=== PATIENT | female | born 1950 | race Two or more races ===

== ENCOUNTER 2018-05-26 12:02 | Outpatient (CLI) | payer OTHER | END 2018-05-26 12:12 | disposition home or self-care (01) | LOC: SONOGRAMA 12:02 | DX: N60.11 Diffuse cystic mastopathy of right breast (principal); N60.12 Diffuse cystic mastopathy of left breast; N63.22 Unspecified lump in the left breast, upper inner quadrant ==

== ENCOUNTER → 2018-09-21 | Outpatient (CLI) | payer OTHER ==
[~2018-09-21] VITALS: Ht 154.9 cm; Wt 64.4 kg
== END | disposition home or self-care (01) ==
LOC: OFIC 805 14:00
DX: R68.2 Dry mouth, unspecified (principal); M35.00 Sjogren syndrome, unspecified

== ENCOUNTER 2018-10-19 09:33 | Outpatient (CLI) | payer OTHER ==
[~2018-10-19] VITALS: Ht 152.4 cm; Wt 63.5 kg
== END 2018-10-19 09:45 | disposition home or self-care (01) ==
LOC: OFIC 805 09:33
DX: R68.2 Dry mouth, unspecified (principal); R09.81 Nasal congestion; J30.89 Other allergic rhinitis

== ENCOUNTER 2024-09-25 14:36 | Inpatient (IN) | payer OTHER ==
[~2024-09-25] VITALS: Ht 154.9 cm; Wt 63.0 kg
[2024-09-25] MEDS ORDERED: LIPITOR40 MG PO (15:23)
[2024-09-25] MEDS ORDERED: ZOVIRAX200 MG PO (15:26)
[2024-09-25] MEDS ORDERED: ATORVASTATIN CA20 MG PO (15:27)
[2024-09-25] MEDS ORDERED: TENORMIN50 M1 (15:27)
[2024-09-25] MEDS ORDERED: AMITRIPTYLINE H25 MG PO (15:27)
[2024-09-25] MEDS ORDERED: CELEBREX200MG PO (15:28)
[2024-09-25] MEDS ORDERED: BETAMETHASONE D15 G2 (15:28)
[2024-09-25] MEDS ORDERED: FENOFIBRIC ACI105 MG (15:28)
[2024-09-25] MEDS ORDERED: HYDROCHLOROTH12.5 M2 PO (15:29)
[2024-09-25] MEDS ORDERED: LOSARTAN POTASS50 MG PO (15:29)
[2024-09-25] MEDS ORDERED: LEVO-T50 MCG (15:29)
[2024-09-25] MEDS ORDERED: MAXIMUM D3325 MCG PO (15:30)
[2024-09-25] MEDS ORDERED: PANTOPRAZOLE SO40 MG PO (15:30)
[2024-09-25] MEDS ORDERED: RISEDRONATE SOD35 M1 (15:30)
[2024-09-25] MEDS ORDERED: SERTRALINE HCL100 MG PO (15:31)
[2024-09-25] MEDS ORDERED: ZANAFLEX2 M1 (15:31)
--- NOTE | 2024-09-25 15:32 | NUR ---
SE RECIBE PACIENTE FEMENINA ALERTA Y ORIENTADA X3. REFIERE ACUDIR A ER POR SINTOMAS DE DOLOR DE RICHELLE Y DEBILIDAD EN LAS PIERNAS. INDICA QUE EL DOLOR DE RICEHLLE SE UBICA DE MANERA UNILATERAL, PUNZANTE DE MANERA INTERMITENTE
--- NOTE | 2024-09-25 17:03 | NUR ---
PACIENTE ALERTA Y ORIENTADA X 3. SE ORIENTA DE TRATAMIENTO TREVOR ORDEN MEDICA. REFIERE ENTENDER. SE MELISA MUESTRAS CON MEDIDAS ASEPTICAS CORRESPONDIENTES.
[2024-09-25 17:17] LABS: HEMATOCRIT 41.6 % (36.0-45.00); MEAN CELL VOLUME 83.1 fL (80.00-100.00); MEAN CORPUSCULAR HGB CONC 33.7 g/dl (32.0-36.0); PLATELET COUNT 296 K/uL (150-450); RED BLOOD COUNT 5.01 M/uL (4.00-6.00)
[2024-09-25 17:43] LABS: ALBUMIN 3.9 gm/dL (3.4-5.0); BILIRUBIN TOTAL 0.42 mg/dL (0.3-1.2); CREATININE SERUM 0.84 mg/dL (0.55-1.02); GFR 66.46; GLOBULINA 3.6 G/DL (2.4-3.5); POTASSIUM 4.19 mEq/L (3.5-5.1); TOTAL PROTEIN 7.5 gm/dL (6.4-8.2)
[2024-09-25] MEDS ORDERED: ACETAMINOPHEN 500 MG GEL..CAP PO PRN (21:00)
[2024-09-25] MEDS ORDERED: 0.9 % SODIUM CHLORIDE 1,000 ML IV SCH (21:00)
[2024-09-25] MEDS ORDERED: ONDANSETRON HCL 4 MG in 0.9 % SODIUM CHLORIDE 50 ML IV PRN (21:00)
[2024-09-25 22:13] LABS: INR 0.94; PARTIAL THROMBOPLASTIN TIME 24.1 SECONDS (22.0-34.0); PROTHROMBIN TIME 10.3 SECONDS (9.0-11.5)
[2024-09-25 23:06] LABS: URINE APPEARANCE Clear; URINE BILIRRUBIN Negative (NEGATIVE); URINE BLOOD Negative; URINE COLOR Yellow; URINE GLUCOSE Negative (NEGATIVE); URINE KETONE Negative (NEGATIVE); URINE LEUKOCYTE Negative; URINE NITRATE Negative; URINE PROTEIN Negative (NEGATIVE); URINE UROBILINOGEN 0.2 E.U./dl
[2024-09-25 23:10] LABS: URINE BACTERIA 19.5 uL (0.0-1933); URINE EPITHELIAL CELLS 3.1 uL (0.0-38.8)
[2024-09-25 23:11] LABS: URINE RBC 1.1 uL (0.0-20.8); URINE WBC 0.3 uL (0.0-23.2)
[2024-09-26] VITALS (10 sets, daily range): BP systolic 142–188; BP diastolic 57–79; O2SAT 90–100
[2024-09-26] MEDS ORDERED: NIFEDIPINE 10 MG CAPSULE PO ONE (00:30)
[2024-09-26] MEDS ORDERED: LEVOTHYROXINE SODIUM 50 MCG TABLET PO SCH (06:00)
[2024-09-26] MEDS ORDERED: FAMOTIDINE/PF 20 MG/2 ML VIAL ONE (07:50)
[2024-09-26] MEDS ORDERED: LOSARTAN POTASSIUM 50 MG TABLET PO SCH (09:00)
[2024-09-26] MEDS ORDERED: SERTRALINE HCL 25 MG TABLET PO SCH (09:00)
[2024-09-26] MEDS ORDERED: ATORVASTATIN CALCIUM 40 MG TABLET PO SCH (09:00)
[2024-09-26] MEDS ORDERED: ASPIRIN 81 MG TAB.CHEW PO SCH (09:00)
[2024-09-26] MEDS ORDERED: FAMOTIDINE/PF 20 MG in 0.9 % SODIUM CHLORIDE 8 ML IV PUSH SCH (09:00)
[2024-09-26] MEDS ORDERED: ENOXAPARIN SODIUM 40 MG/0.4 ML SYRINGE SUBCUTANEO SCH (09:00)
[2024-09-26] MEDS ORDERED: PANTOPRAZOLE SODIUM 40 MG TABLET.DR PO SCH (17:00)
[2024-09-27] VITALS (9 sets, daily range): BP systolic 139–162; BP diastolic 60–81; O2SAT 89–100
[2024-09-27] MEDS ORDERED: CELECOXIB 200 MG CAPSULE PO SCH (17:00)
[2024-09-27] MEDS ORDERED: NIFEDIPINE 30 MG TAB.SA.OSM PO NR (19:00)
[2024-09-28 01:18] VITALS: BP 133/66; O2SAT 94
[2024-09-28 01:22] VITALS: O2SAT 94
[2024-09-28 05:37] VITALS: O2SAT 91
[2024-09-28 06:44] LABS: HEMATOCRIT 41.2 % (36.0-45.00); HEMOGLOBIN 13.9 g/dL (12.0-15.00); MEAN CELL VOLUME 83.3 fL (80.00-100.00); MEAN CORPUSCULAR HEMOGLOBIN 28.2 pg (27.00-32.0); MEAN CORPUSCULAR HGB CONC 33.8 g/dl (32.0-36.0); PLATELET COUNT 245 K/uL (150-450); RED BLOOD COUNT 4.94 M/uL (4.00-6.00); RED CELL DISTRIBUTION WIDTH 13.6 % (11.5-14.5)
[2024-09-28 07:24] LABS: ALBUMIN 3.4 gm/dL (3.4-5.0); BILIRUBIN TOTAL 0.73 mg/dL (0.3-1.2); CALCIUM 8.8 mg/dL (8.5-10.1); CHOL HDL RATIO 3.6 (0-5.0); CREATININE SERUM 0.67 mg/dL (0.55-1.02); GFR 86.27; GLOBULINA 3.5 G/DL (2.4-3.5); POTASSIUM 4.23 mEq/L (3.5-5.1); TOTAL PROTEIN 6.9 gm/dL (6.4-8.2); TSH 2.39 uIU/mL (0.358-3.74)
[2024-09-28 08:20] VITALS: BP 109/64
[2024-09-28] MEDS ORDERED: NIFEDIPINE 30 MG TAB.SA.OSM PO SCH (09:00)
[2024-09-28 09:06] VITALS: O2SAT 95
[2024-09-28] MEDS ORDERED: COZAAR50 MG PO (11:38)
[2024-09-28] MEDS ORDERED: LIPITOR40 M1 PO (11:38)
[2024-09-28] MEDS ORDERED: NIFEDIPINE ER30 M1 PO (11:38)
[2024-09-28] MEDS ORDERED: ADULT ASPIRIN81 MG PO (11:39)
[2024-09-28] MEDS ORDERED: SERTRALINE HCL25 MG PO (11:39)
[2024-09-28] MEDS ORDERED: CELEBREX200MG PO (11:39)
[2024-09-28] MEDS ORDERED: PANTOPRAZOLE SO20 MG PO (11:40)
[2024-09-28] MEDS ORDERED: LEVOTHYROXINE50 MCG PO (11:40)
== END 2024-09-28 12:58 | disposition home or self-care (01) | DRG 69 ==
LOC: ER 14:39 → MEDI 22:06
PROVIDERS: General Practice; ADMIT Internal Medicine; ATTEND Internal Medicine
PROC: BW28ZZZ Computerized Tomography (CT Scan) of Head (ICD-10-PCS; principal; 2024-09-25)
PROC: B345ZZZ Ultrasonography of Bilateral Common Carotid Arteries (ICD-10-PCS; 2024-09-25)
PROC: B246ZZZ Ultrasonography of Right and Left Heart (ICD-10-PCS; 2024-09-26)
PROC: 4A12X4Z Monitoring of Cardiac Electrical Activity, External Approach (ICD-10-PCS; 2024-09-26)
PROC: BB24ZZZ Computerized Tomography (CT Scan) of Bilateral Lungs (ICD-10-PCS; 2024-09-27)
DX: G45.9 Transient cerebral ischemic attack, unspecified (principal); R00.1 Bradycardia, unspecified; I10 Essential (primary) hypertension; E03.8 Other specified hypothyroidism; E78.5 Hyperlipidemia, unspecified
CPT/HCPCS: 71275